=== PATIENT | female | born 1935 | race Caucasian/White ===

== ENCOUNTER 2016-08-14 23:50 | Inpatient (IN) | payer MEDICARE, OTHER ==
--- NOTE | ~2016-08-14 | EGD ---
EGD REPORT [facility] [address] [address] NAME: FATMATA VILLA : 34 STATUS : ADM IN PAT#: [id number] AGE: 81 ADM/REG DATE : 08/15/16 MR#: [id number] REPORT SERV DATE: 08/15/16 DICTATED BY: JIMMY ALANIS DATE: 08/15/16 REPORT STATUS : Draft [facility]ANSCRIBED [facility]: [facility] DATE: 08/15/16 Endoscopy Center Patient Name: Fatmata Villa Date of : 1935 Attending MD: JIMMY ALANIS MD Procedure Date No Time: 08/15/2016 Procedure: Upper EUS Indications: Common bile duct dilation (acquired) seen on CT scan, Suspected mass in pancreas on CT scan, Obstruction of bile duct on CT Medicines: General Anesthesia Complications: No immediate complications. Estimated blood loss: Minimal. Procedure: Pre-Anesthesia Assessment: - ASA Grade Assessment: III - A patient with severe systemic disease. After obtaining informed consent, the endoscope was passed under direct vision. Throughout the procedure, the patient's blood pressure, pulse, and oxygen saturations were monitored continuously. The Endoscope was introduced through the mouth, and advanced to the second part of duodenum. The Endoscope was introduced through the mouth, and advanced to the second part of duodenum. The upper EUS was accomplished without difficulty. The patient tolerated the procedure well. Findings: Endosonographic Finding : There was dilation in the common bile duct which measured up to 13 mm. A round mass was identified in the pancreatic head. The mass was hypoechoic. The mass measured 30 mm by 30 mm in maximal cross-sectional diameter. The endosonographic borders were well-defined. There was sonographic evidence suggesting invasion into the portal vein (manifested by invasion). An intact interface was seen between the mass and the celiac trunk, splenic artery and superior mesenteric artery suggesting a lack of invasion. Fine needle aspiration was performed. Color Doppler imaging was utilized prior to needle puncture to confirm a lack of significant vascular structures within the needle path. Five passes were made with the 22 gauge needle using a transduodenal approach. Some passes were made with a stylet. A database consultant was present and performed a preliminary cytologic examination. Preliminary cytology is suspicious for adenocarcinoma (final results are pending). Estimated blood loss was minimal. The pancreatic duct had a dilated endosonographic appearance in the entire pancreas. The pancreatic duct measured up to 7 mm in diameter. EGD REPORT [address] [place]. [address] NAME: FATMATA VILLA : 34 STATUS : ADM IN PAT#: [id number] AGE: 81 ADM/REG DATE : 08/15/16 MR#: [id number] REPORT SERV DATE: 08/15/16 DICTATED BY: JIMMY ALANIS DATE: 08/15/16 REPORT STATUS : Draft TRANSCRIBED BY: [facility] DATE: 08/15/16 No lymphadenopathy seen. Endosonographic imaging of the visualized portion of the liver showed no lesion and no mass. Impression: - There was dilation in the common bile duct which measured up to 13 mm. This was obstructed by a mass in the head of the pancreas. - A mass was identified in the pancreatic head. Tissue was obtained from this exam. The preliminary diagnosis is of adenocarcinoma. This was staged T3 N0 Mx by endosonographic criteria. Recommendation: - Perform an ERCP today. - Refer to an oncologist at the next available appointment. - Refer to a surgeon at the next available appointment. Procedure Code(s): --- Professional --- 42372, Esophagogastroduodenoscopy, flexible, transoral; with transendoscopic ultrasound-guided intramural or transmural fine needle aspiration/biopsy(s) (includes endoscopic ultrasound examination of the esophagus, stomach, and either the duodenum or a surgically altered stomach where the jejunum is examined distal to the anastomosis) Diagnosis Code(s): --- Professional --- K83.8, Other specified diseases of biliary tract K86.8, Other specified diseases of pancreas R93.3, Abnormal findings on diagnostic imaging of other parts of digestive tract K83.1, Obstruction of bile duct CPT copyright 2013 [employer]. All rights reserved. The codes documented in this report are preliminary and upon production line review may be revised to meet current compliance requirements. Jimmy Alanis MD JIMMY ALANIS MD 08/15/2016 11:43 AM This report has been signed electronically. Number of Addenda: 0 Note Initiated On: 08/15/2016 10:41 AM EGD REPORT [facility] [address] [address] NAME: FATMATA VILLA : 34 STATUS : ADM IN [facility]#: [id number] AGE: 81 ADM/REG DATE : 08/15/16 MR#: [id number] REPORT SERV DATE: 08/15/16 DICTATED BY: JIMMY ALANIS DATE: 08/15/16 REPORT STATUS : Draft TRANSCRIBED BY: [employer] DATE: 08/15/16 Scope Withdrawal Time 0 hours 0 minutes 0 seconds [address] [address]
--- NOTE | ~2016-08-14 | HP ---
History And Physical [place] [id number] [facility] [place]. [address] NAME: FATMATA VILLA : 34 STATUS : ADM IN [facility]#: [id number] AGE: 81 ADM/REG DATE : 08/15/16 MR#: [id number] REPORT SERV DATE: 08/15/16 DICTATED BY: SIRI BARRAGAN DATE: 08/15/16 REPORT STATUS : Draft TRANSCRIBED BY: JAYNE DATE: 08/15/16 DATE OF ADMISSION: 08/15/2016 CHIEF COMPLAINT: Severe itching. HISTORY OF PRESENT ILLNESS: This is an 81-year-old female with past medical history of hypertension and hypothyroidism, presented with a chief complaint of severe itching, which initiated in 06/2016. The patient's primary care physician retired. Therefore, the patient's daughter had the patient seen by her primary care physician, Dr. Ames, who evaluated the patient and noticed the patient was jaundiced and ordered a CT of abdomen and pelvis for which the patient had a CT of the abdomen and pelvis without contrast on 08/14/2016 at [facility] with CT findings suggestive of a pancreatic head malignancy with marked dilated bile ducts and moderate dilated pancreatic duct with mild dilated gallbladder. No gallstones and no evidence of metastases per the study and also some moderate extraperitoneal gas along the anterior bladder margin and the patient was referred to the emergency department. The patient has been on hydroxyzine and Benadryl for a little bit over a month for her severe itching by previous providers. She presented to [facility] ER, and the ER staff ordered a repeat CT of the abdomen and pelvis for medical records at [facility] and called the hospitalist to admit the patient to the hospital. REVIEW OF SYSTEMS: Positive night sweats. Positive approximate 10-pound weight loss. Decreased oral intake with a decreased appetite. No chest pain. No shortness of breath. No abdominal pain. No nausea or vomiting. No diarrhea. No constipation. PAST MEDICAL HISTORY: Hypertension, GERD, hypothyroidism, type 2 diabetes, fibromyalgia. PAST SURGICAL HISTORY: Left knee total replacement, hysterectomy, bladder sling, blepharoplasty. FAMILY HISTORY: Throat cancer, leukemia, lung cancer, vulvar cancer. SOCIAL HISTORY: Quit tobacco abuse 50 years ago. Smoked for approximately 15 years. No alcohol or illicit drugs with good physical capacity. ALLERGIES: ALLERGIES TO SULFA AND PHENERGAN. PHENERGAN CAUSES HALLUCINATIONS. HOME MEDICATIONS: 1. Atenolol 12.5 mg p.o. q.a.m. 2. Zyrtec 10 mg p.o. q.a.m. 3. Benadryl 25 mg p.o. q.8 hours. 4. Lexapro 10 mg p.o. q.a.m. 5. Estradiol vaginal cream p.r.n. 6. Atarax 25 mg p.o. q.8 hours. 7. Motrin 600 mg p.o. daily p.r.n. 8. Levothyroxine 88 mcg p.o. q.a.m. History And Physical [address] [address] NAME: FATMATA VILLA : 34 STATUS : ADM IN [facility]#: [id number] AGE: 81 ADM/REG DATE : 08/15/16 MR#: [id number] REPORT SERV DATE: 08/15/16 DICTATED BY: SIRI BARRAGAN DATE: 08/15/16 REPORT STATUS : Draft TRANSCRIBED BY: JAYNE DATE: 08/15/16 9. Antivert 25 mg p.o. daily p.r.n. 10.Metformin ER 500 mg p.o. at bedtime. 11.Prilosec 20 mg p.o. q.a.m. 12.Systane ophthalmic drops p.r.n. 13.Zantac 150 mg p.o. b.i.d. PHYSICAL EXAMINATION: VITAL SIGNS: Temp of 97.8, blood pressure 160/77 with a pulse of 76, respiration of 16, and saturating 98% on room air. GENERAL: The patient is alert oriented and x3, very pleasant, but in some mild distress secondary to severe itching. SKIN: Positive jaundice. HEENT: Positive scleral icterus. Extraocular muscles are intact. Moist to dry mucous membranes. CARDIOVASCULAR: S1, S2. Regular rate and rhythm. No murmurs, rubs, or gallops. No JVD. RESPIRATORY: Clear to auscultation bilaterally. No wheezes or crackles. No signs of tachypnea. ABDOMEN: Positive bowel sounds. Soft, nontender. No rebound. No fluid wave. No distention. EXTREMITIES: 2+ pulse bilaterally. No edema. NEURO: Cranial nerves II through XII grossly intact. Moves all four extremities. No neuro focal deficits. LABORATORY DATA: Sodium 136, potassium 3.6, chloride 100, bicarb of 25, BUN of 12, creatinine is 0.8 with a glucose of 173, albumin of 2.9, T-bili of 10.5, alkaline phosphatase 252, ALT of 154, AST of 127, lipase of 723. White cell count of 8.1 with a hemoglobin of 11.5, platelet count 269. UA with a specific gravity of 1.16, negative protein, moderate amount of bilirubin, small amount of blood, trace of leukocyte esterase, positive nitrites, 5 white blood cells. ASSESSMENT AND PLAN: 1. Pancreatic mass. 2. Hyperbilirubinemia with jaundice. 3. Elevated liver function tests. 4. History of type 2 diabetes. 5. History of hypertension. The patient will be admitted to Dr. Adriano Young, and also, we will consult GI physician, Dr. Duong who is the patient's primary Gastrointestinal physician for further workup and evaluation for biopsy for diagnoses. Also, we will provide care for itching. We will continue with sliding scale insulin for now and blood pressure management. [facility] Siri Nunn History And Physical [address] [address] NAME: FATMATA VILLA PROSPER : 34 STATUS : ADM IN [facility]#: [id number] AGE: 81 ADM/REG DATE : 08/15/16 MR#: [id number] REPORT SERV DATE: 08/15/16 DICTATED BY: SIRI BARRAGAN DATE: 08/15/16 REPORT STATUS : Draft TRANSCRIBED BY: JAYNE DATE: 08/15/16 Veronika Barragan / [id number] CC: MD Mark Hodges M.D.
--- NOTE | ~2016-08-14 | EGD ---
EGD REPORT [place] [address] [address] NAME: FATMATA VILLA : 34 STATUS : ADM IN PAT#: [id number] AGE: 81 ADM/REG DATE : 08/15/16 MR#: [id number] REPORT SERV DATE: 08/15/16 DICTATED BY: JIMMY ALANIS DATE: 08/15/16 REPORT STATUS : Draft TRANSCRIBED BY: [facility] DATE: 08/15/16 Endoscopy Center Patient Name: Fatmata Villa Date of : 1935 Attending MD: JIMMY ALANIS MD Procedure Date No Time: 08/15/2016 Procedure: ERCP Indications: Malignant tumor of the head of pancreas Medicines: General Anesthesia Complications: No immediate complications. Estimated blood loss: Minimal. Procedure: Pre-Anesthesia Assessment: - ASA Grade Assessment: III - A patient with severe systemic disease. After obtaining informed consent, the scope was passed under direct vision. Throughout the procedure, the patient's blood pressure, pulse, and oxygen saturations were monitored continuously. The Duodenoscope was introduced through the mouth, and advanced to the duodenum and used to inject contrast into the bile duct. The ERCP was accomplished without difficulty. The patient tolerated the procedure well. Findings: The teacher cclc film was normal. The esophagus was successfully intubated under direct vision. The scope was advanced to a normal major papilla in the descending duodenum without detailed examination of the pharynx, larynx and associated structures, and upper GI tract. The upper GI tract was grossly normal. After engaging the papilla, a short 0.035 inch Soft Jagwire was passed into the biliary tree. The short-nosed traction sphincterotome was passed over the guidewire and the bile duct was then deeply cannulated. Contrast was injected. I personally interpreted the bile duct images. Image quality was adequate. The lower third of the main bile duct contained a single localized stenosis 30 mm in length. The entire biliary tree was diffusely dilated, with a mass causing an obstruction. The largest diameter was 13 mm. One 10 mm by 4 cm bare metal stent was placed into the common bile duct. Bile flowed through the stent. The stent was in good position. The endoscope was withdrawn from the patient. Impression: - A localized biliary stricture was found. The stricture was malignant appearing. - The entire biliary tree was dilated, with a mass causing an obstruction. - Successful placement of a 10 x 40 mm uncovered SEMS EGD REPORT [address] [address] NAME: FATMATA VILLA : 34 STATUS : ADM IN [facility]#: [id number] AGE: 81 ADM/REG DATE : 08/15/16 MR#: [id number] REPORT SERV DATE: 08/15/16 DICTATED BY: JIMMY ALANIS DATE: 08/15/16 REPORT STATUS : Draft TRANSCRIBED BY: [employer] DATE: 08/15/16 for relief of biliary obstruction Recommendation: - Return patient to hospital [facility] for ongoing care. Procedure Code(s): --- Professional --- 18009, Endoscopic retrograde cholangiopancreatography (ERCP); with placement of endoscopic stent into biliary or pancreatic duct, including pre- and post-dilation and guide wire passage, when performed, including sphincterotomy, when performed, each stent Diagnosis Code(s): --- Professional --- K83.1, Obstruction of bile duct C25.0, Malignant neoplasm of head of pancreas CPT copyright 2013 [employer]. All rights reserved. The codes documented in this report are preliminary and upon credit underwriter review may be revised to meet current compliance requirements. Jimmy Alanis MD JIMMY ALANIS MD 08/15/2016 12:15 PM This report has been signed electronically. Number of Addenda: 0 Note Initiated On: 08/15/2016 10:46 AM Scope Withdrawal Time 0 hours 0 minutes 0 seconds [address] [address]
--- NOTE | ~2016-08-14 | CN ---
Consultation Report [facility] [address] [place]. [address] NAME: FATMATA VILLA : 34 STATUS : ADM IN PAT#: [id number] AGE: 81 ADM/REG DATE : 08/15/16 MR#: [id number] REPORT SERV DATE: 08/16/16 DICTATED BY: GRADY PETERSEN III DATE: 08/15/16 REPORT STATUS : Draft TRANSCRIBED BY: [employer] DATE: 08/15/16 CONSULTATION DATE OF CONSULTATION: 08/15/2016 REASON FOR CONSULTATION: Pancreatic cancer. HISTORY OF PRESENT ILLNESS: Ms. Villa is an 81-year-old female, who has noted roughly two months of progressive fatigue and mild weight loss of roughly 10 pounds. Over the past one to two days, she has developed some severe itching and noticed development of jaundice. She present to her primary care doctor who sent her to the emergency department where a CT scan showed a pancreatic head mass. She underwent an EUS with biopsy and ERCP with stent placement, which returned showing a preliminary diagnosis of pancreatic adenocarcinoma. The EUS revealed a primary tumor measured roughly 3 cm. There was some sonographic evidence of invasion into the portal vein, but an intact interface noted between the mass of the celiac trunk, splenic artery, and superior mesenteric artery. Presently Ms. Villa is very comfortable. She notes continued itching, but otherwise has very minimal abdominal pain and excellent appetite. PAST MEDICAL HISTORY: Significant for hypertension, hypothyroidism, type 2 diabetes, GERD, and fibromyalgia. SOCIAL HISTORY: Significant for a prior smoking history, but she stopped many years ago. ALLERGIES: INCLUDE SULFA DRUGS AND PHENERGAN. HOME MEDICATION: List reviewed and per the home med list in the chart. FAMILY HISTORY: Negative for any GI malignancies, but is positive for leukemia, lung cancer, throat cancer, and SHELL PRESS OPERATOR cancer. REVIEW OF SYSTEMS: A comprehensive review of systems was performed and is negative unless noted in the HPI. PHYSICAL EXAMINATION: VITAL SIGNS: Blood pressure is 145/73, temperature is 98.5, pulse is 68, respirations 15. GENERAL: Well-developed, well-nourished, elderly female, and appearing much younger than her stated age. EYES: There are mild icteric sclerae. NECK: Supple with no masses or thyroid enlargement. No JVD. CARDIOVASCULAR: Regular rate and rhythm with no audible murmurs. There is no peripheral edema. LUNGS: Clear to auscultation bilaterally with normal respiratory effort. ABDOMEN: Soft, nondistended, nontender with no hepatosplenomegaly. SKIN: Warm and dry with good skin turgor. There is jaundice noted. Consultation Report [place] [address] [place]. [address] NAME: FATMATA VILLA : 34 STATUS : ADM IN PAT#: [id number] AGE: 81 ADM/REG DATE : 08/15/16 MR#: [id number] REPORT SERV DATE: 08/16/16 DICTATED BY: GRADY PETERSEN III DATE: 08/15/16 REPORT STATUS : Draft TRANSCRIBED BY: JAYNE DATE: 08/15/16 PSYCH: She is alert, oriented, and comprehends our conversation with normal judgment and affect. LABORATORY DATA: Her labs from today were reviewed, and significant for elevated liver function tests. Her CBC was reviewed showing mild anemia. Her CT scan was personally reviewed, it was performed without contrast and without any evidence of metastatic disease. ASSESSMENT AND PLAN: 1. Likely pancreatic adenocarcinoma. She does have an excellent performance status. We will await final pathology reports. She is said to be seen by a SHELL PRESS OPERATOR oncologic surgeon. We will obtain a CT scan with contrast of her liver to complete staging and rule out occult metastasis. I will follow Ms. Villa while she is an inpatient and arrange outpatient followup in our [facility] upon discharge. [facility]/JAYNE Grady Petersen III, M.D. / [id number] CC: MD Mark Hodges M.D.
--- NOTE | ~2016-08-14 | CN ---
Consultation Report [place] [id number] [facility] [place]. [address] NAME: FATMATA VILLA JULY CHENG : 34 STATUS : ADM IN [facility]#: [id number] AGE: 81 ADM/REG DATE : 08/15/16 MR#: [id number] REPORT SERV DATE: 08/15/16 DICTATED BY: JIMMY ALANIS DATE: 08/15/16 REPORT STATUS : Draft TRANSCRIBED BY: [employer] DATE: 08/15/16 INPATIENT CONSULT NOTE DATE OF CONSULTATION: 08/15/2016 REASON FOR CONSULTATION: Obstructive jaundice with pancreatic head mass. HISTORY OF PRESENT ILLNESS: Mrs. Villa is a very pleasant 81-year-old female with no significant past medical history, who was referred to the emergency department yesterday after undergoing CT scanning of her abdomen for findings of new jaundice. According to the patient, she has been having problems with severe uncontrollable itching for the past two months. The patient had not seen her primary care physician as he had recently retired, however, she was seen by another primary care physician who urgently referred her for CT scan of the abdomen after finding that she had a markedly elevated bilirubin level. CT of the abdomen performed in [place], [place] demonstrated a 3.8 cm mass in the head of the pancreas causing marked obstruction of the common bile duct. She was later referred to the emergency department for further management and care. The patient states that she has lost approximately 10 pounds over the past two months. No fevers or chills. No nausea or vomiting. No significant abdominal pain. No family history of pancreatic malignancy. REVIEW OF SYSTEMS: All systems were reviewed and were negative aside from what was mentioned in the history of present illness. PAST MEDICAL HISTORY: Includes: 1. Hypertension. 2. Hypothyroidism. 3. GERD. 4. Type 2 diabetes. 5. Fibromyalgia. FAMILY HISTORY: No family history of GI related malignancies. SOCIAL HISTORY: The patient was a prior smoker, but quit 50 years ago. No alcohol or illicit substance abuse. ALLERGIES: THE PATIENT HAS ALLERGIES TO SULFA AND PHENERGAN. HOME MEDICATIONS: 1. Atenolol. 2. Zyrtec. 3. Benadryl. 4. Lexapro. 5. Estradiol cream. Consultation Report [place] [address] [facility] [place]. [address] NAME: VILLA,FATMATA CHENG : 34 STATUS : ADM IN PAT#: [id number] AGE: 81 ADM/REG DATE : 08/15/16 MR#: [id number] REPORT SERV DATE: 08/15/16 DICTATED BY: JIMMY ALANIS DATE: 08/15/16 REPORT STATUS : Draft TRANSCRIBED BY: JAYNE DATE: 08/15/16 6. Atarax. 7. Motrin. 8. Levothyroxine. 9. Antivert. 10.Metformin. 11.Prilosec. 12.Systane ophthalmic drops. 13.Zantac. PHYSICAL EXAMINATION: VITAL SIGNS: Most recent vital signs include a temperature of 98.2, pulse rate of 82, blood pressure 156/90, saturating 98% on room air. GENERAL INSPECTION: Reveals an elderly female, lying in bed, in no apparent distress. HEENT: Head is normocephalic, atraumatic with normal inspection of the oral mucosa and posterior pharynx. Sclerae are icteric, but pupils are equal and round. NECK: Supple without lymphadenopathy. HEART: Rate is regular with normal S1, S2. LUNGS: Sounds clear to auscultation bilaterally. ABDOMEN: Soft, nontender, nondistended with normoactive bowel sounds. The patient has no masses that were palpable. EXTREMITIES: No cyanosis, clubbing, or edema. No jaundice or rash. No gross motor deficits. NEURO: She was alert and oriented. Mood and affect are appropriate. Judgment appeared to be intact. LABORATORY DATA: Most recent laboratory results include CBC that demonstrates a white count of 9.6, hemoglobin of 11.2, and a platelet count of 241,000. INR was 1.0. Comprehensive metabolic panel demonstrated normal electrolytes with normal BUN and creatinine. Total bilirubin was elevated at 10.2. Alkaline phosphatase 238, ALT 136, and AST of 108. CT of the abdomen and pelvis performed at an outside facility. The report was reviewed and suggested that there is a 3.8 cm mass in the head of the pancreas causing obstruction of the common bile duct which is dilated to 2 cm. ASSESSMENT AND PLAN: Mrs. Villa is a very pleasant 81-year-old female with no significant past medical history, who presents with jaundice and severe pruritus and she was found to have an obstructing pancreatic head mass causing biliary obstruction. I would recommend proceeding with endoscopic ultrasound and fine-needle aspiration biopsy. After that, once the diagnosis has been obtained, we would recommend placement of a metal stent for drainage and relief of her jaundice and pruritus. We would also recommend checking a CA 19-9. Once the tissue diagnosis has been obtained, we would recommend pursuing oncology consult if it is found to be positive for malignancy. I would also recommend obtaining a surgical consult for consideration of possible resection if no metastatic disease is present and the mass is felt to be amenable to surgery. Consultation Report [address] [place]. [address] NAME: FATMATA VILLA : 34 STATUS : ADM IN PAT#: [id number] AGE: 81 ADM/REG DATE : 08/15/16 MR#: [id number] REPORT SERV DATE: 08/15/16 DICTATED BY: JIMMY ALANIS DATE: 08/15/16 REPORT STATUS : Draft TRANSCRIBED BY: JAYNE DATE: 08/15/16 Thank you very much for this interesting consult and allowing me to participate in Mrs. Villa' care. Please call with questions. [facility]/JAYNE Jimmy Alanis MD / [id number] CC: MD Mark Hodges M.D.
--- NOTE | ~2016-08-14 | DS ---
Discharge Summary [facility] [address] [facility] [place]. [address] NAME: FATMATA VILLA : 33 STATUS : DIS IN PAT#: [id number] AGE: 81 ADM/REG DATE : 08/15/16 MR#: [id number] REPORT SERV DATE: 08/17/16 DICTATED BY: SELINA BEJARANO DATE: 08/16/16 REPORT STATUS : Draft TRANSCRIBED BY: MODYves DATE: 08/16/16 ADMISSION DATE: 08/15/2016 DISCHARGE DATE: 08/16/2016 DISCHARGE DIAGNOSES: 1. Pancreatic cancer, preliminary diagnosis, status post EUS/ERCP. Dr. Thompson on 08/15/2016. 2. Hyperbilirubinemia with jaundice, improving. 3. Elevated liver function tests, improving. 4. Diabetes mellitus type 2, stable. 5. Hypertension, stable. IMAGING AND PROCEDURES: CT abdomen and pelvis on 08/15/2016. Impression: Areas of irregular linear atelectasis and/or fibrosis primarily in the lower lungs. Otherwise lungs are clear. Hiatal hernia. Enlargement of the pancreatic head with edema/inflammation within the adjacent fat. Possible underlying masses not adequately evaluated due to lack of IV contrast. The stent is present in the common duct. There is a minimal intrahepatic pneumobilia with significant intrahepatic duct dilation. The gallbladder is distended with prominence of gallbladder wall thickness. Evidence of calcified gallbladder stones or pericholecystic inflammation. ERCP and EUS on 08/15/2016. Findings, localized biliary stricture. The stricture was found. The stricture was malignant appearing. The entire biliary tree was dilated with a mass causing an obstruction. Successful placement of a 10 x 40 uncovered SCMS. CONSULTATION: 1. GI, Dr. Thompson. 2. Oncology, Dr. Ren. COURSE OF HOSPITAL STAY: Please refer to history and physical dictated by Dr. Stewart on 08/15/2016 for complete admission details as well as consultation notes. This patient is an 81-year-old female, who presented in [facility] with complaints of severe itching. She does present with a history of hypertension and hypothyroidism. The patient stated that itching began in 06/2016 and then followed by primary care. CT of the abdomen and pelvis by primary care noted possible pancreatic head malignancy with marked dilation of bile duct and moderate dilated pancreatic duct with mild dilated gallbladder. The patient was advised to be evaluated in the emergency room. Additional imaging was obtained as noted above. 1. Pancreatic cancer. New diagnosis status post EUS/ERCP, Dr. Thompson on 08/15/2016. The patient was admitted to the hospital for further testing and evaluation. The patient did undergo above procedure. Consultation by Oncology and Surgery. The patient was evaluated, will follow up outpatient for further discussion of treatment plan. Pathology is pending. 2. Hyperbilirubinemia with jaundice. The patient was noted with elevated total bilirubin upon admission of 10.5, IV fluids provided as well as IV hydration. The patient's Discharge Summary [place] [id number] [facility]. [address] NAME: FATMATA VILLA : 33 STATUS : DIS IN PAT#: [id number] AGE: 81 ADM/REG DATE : 08/15/16 MR#: [id number] REPORT SERV DATE: 08/17/16 DICTATED BY: SELINA BEJARANO DATE: 08/16/16 REPORT STATUS : Draft TRANSCRIBED BY: JAYNE DATE: 08/16/16 bilirubin prior to discharge, total bilirubin is down to 7.0. The patient will continue followed outpatient and monitor. 3. Diabetes mellitus type 2. Patient will resume home medications. Blood sugars have remained stable. 4. Hypertension. Patient's blood pressures remained stable. We will continue Norvasc 5 mg outpatient. 5. Pruritus. The patient has had complaints of pruritus for approximately 8 weeks. This is improving following decrease in bilirubin level. She will continue Benadryl and Atarax p.r.n. as needed for itching. DISCHARGE MEDICATIONS: 1. Norvasc 5 mg one p.o. twice daily. 2. Atenolol 25 mg 12.5 p.o. every morning. 3. Benadryl 25 mg p.o. every eight hours. 4. Lexapro 10 mg tab p.o. every morning. 5. Zantac 150 mg one p.o. twice daily. 6. Levothyroxine 88 mcg p.o. every morning. 7. Zyrtec 10 mg one p.o. every morning. 8. Prilosec 20 mg one p.o. every morning. 9. Atarax 25 mg one p.o. every eight hours. 10.Metformin 500 mg p.o. at bedtime. 11.Motrin 600 mg p.r.n. daily for headache. 12.Estradiol one application daily p.r.n. 13.Antivert 25 mg one p.o. daily p.r.n. for vertigo. This discharge took less than 30 minutes. /JAYNE Selina Bejarano NP / [id number] CC: MD Mark Hodges M.D.
[2016-08-14 22:34] LABS: BASOPHILS 0.2 %; BASOPHILS ABSOLUTE 0.02 10/3/uL (0.0-0.16); EOSINOPHILS 0.1 %; EOSINOPHILS ABSOLUTE 0.01 10/3/uL (0.0-0.53); ER CBC TAT 0 Hrs 12 Mins; HEMATOCRIT 33.8 % (36.0-48.0); HEMOGLOBIN 11.5 g/dL (12.0-16.0); IMMATURE GRANULOCYTES 0.7 %; IMMATURE GRANULOCYTES ABSOLUTE 0.06 10/3/uL (0.0-0.11); LYMPHOCYTES ABSOLUTE 2.44 10/3/uL (0.67-4.30); MANUAL DIFF NO %; MEAN CORPUSCULAR HEMOGLOB 28.3 pg (26.0-34.0); MONOCYTES ABSOLUTE 0.73 10/3/uL (0.21-1.20); NEUTROPHILS ABSOLUTE 4.87 10/3/uL (2.02-8.40); PLATELET COUNT 269 10/3/uL (150-400); RBC DISTRIBUTION WIDTH 18.2 % (12.0-16.0); RED CELL COUNT 4.07 10/6/uL (4.0-5.6); WHITE BLOOD CELLS 8.1 10/3/uL (4.5-10.5)
[2016-08-14 22:40] LABS: ASCORBIC ACID (UR NOT ORDER) NEG (NEG); BILIRUBIN, URINE MODERATE (NEG); ER URINALYSIS TAT 0 Hrs 18 Mins; KETONE, URINE NEGATIVE (NEG); LEUKOCYTE ESTERASE(NOT OR TRACE (NEG); NITRITE (URINE) POS (NEG); WBC (NOT ORDERED) (RFLEX) 5 (0-5)
[2016-08-14 22:58] LABS: A/G RATIO 0.7 (0.7-1.9); ALBUMIN 2.9 G/DL (3.5-5.0); BUN (BLOOD UREA NITROGEN) 12 MG/DL (6-23); CALCIUM, SERUM 8.4 MG/DL (8.5-10.4); CHLORIDE, SERUM 100 MMOL/L (96-112); CO2 (CARBON DIOXIDE) 25 MMOL/L (24-34); CREATININE 0.89 MG/DL (0.55-1.02); DIRECT BILIRUBIN 8.7 MG/DL (0.0-0.4); GFR AFRICAN AMERICAN 70 ML/MIN (>=60); GFR NON AFRICAN AMERICAN 60 ML/MIN (>=60); GLOBULIN 4.1 G/DL (2.5-4.1); GLUCOSE, SERUM 173 MG/DL (60-99); POTASSIUM, SERUM 3.6 MMOL/L (3.5-5.3); SGOT(AST) 127 U/L (5-40); SGPT(ALT) 154 U/L (5-65); SODIUM, SERUM 136 MMOL/L (135-148)
[2016-08-14 22:59] LABS: ALKALINE PHOSPHATASE 252 U/L (45-117); INDIRECT BILIRUBIN(NOT ORDER) 1.8 MG/DL (0.1-0.9); TOTAL BILIRUBIN 10.5 MG/DL (0-1.2)
[~2016-08-14 23:50] MED LIST: ACTONEL150 MG PO; ALEVE220 MG PO; AT25 PO; ATEN25 PO; BEN25 PO; CALTRA600D PO; CLARIT10 PO; COLCH6 PO; ESTRACE VAGIN42.5 GM V; FORTAMET500 MG PO; GLUCPH PO; IBU600 PO; LEVOTHYROXIN88 MCG PO; LEXAPRO10 PO; MCZ25 PO; MOBIC15 MG PO; MOTRIN IB200 MG PO; PREV30 PO; PRILO PO; SYN1 PO; SYN88 PO; SYSTANE OPH; T PO; VITAMIN D1000 UNI1 PO; ZANTAC 150 PO; ZYRTEC ALLGY10 MG PO
[2016-08-15 06:57] LABS: BASOPHILS 0.2 %; BASOPHILS ABSOLUTE 0.02 10/3/uL (0.0-0.16); EOSINOPHILS 0.1 %; EOSINOPHILS ABSOLUTE 0.01 10/3/uL (0.0-0.53); HEMATOCRIT 31.8 % (36.0-48.0); HEMOGLOBIN 11.2 g/dL (12.0-16.0); IMMATURE GRANULOCYTES 0.9 %; IMMATURE GRANULOCYTES ABSOLUTE 0.09 10/3/uL (0.0-0.11); LYMPHOCYTES 24.3 %; LYMPHOCYTES ABSOLUTE 2.32 10/3/uL (0.67-4.30); MEAN CORPUS HGB CONC 35.2 g/dL (32.0-36.0); MEAN CORPUSCULAR HEMOGLOB 28.6 pg (26.0-34.0); MEAN CORPUSCULAR VOLUME 81.3 fL (80-100); MEAN PLATELET VOLUME 10.1 fL (9.2-13.0); MONOCYTES ABSOLUTE 1.05 10/3/uL (0.21-1.20); NEUTROPHILS 63.5 %; NEUTROPHILS ABSOLUTE 6.07 10/3/uL (2.02-8.40); PLATELET COUNT 241 10/3/uL (150-400); RBC DISTRIBUTION WIDTH 18.5 % (12.0-16.0); RED CELL COUNT 3.91 10/6/uL (4.0-5.6); WHITE BLOOD CELLS 9.6 10/3/uL (4.5-10.5)
[2016-08-15 07:01] LABS: MANUAL DIFF NO %
[2016-08-15 07:18] LABS: PROTIME (NOT ORD) 13.2 SEC (12.0-14.5)
[2016-08-15 07:22] LABS: A/G RATIO 0.7 (0.7-1.9); ALBUMIN 2.7 G/DL (3.5-5.0); ALKALINE PHOSPHATASE 238 U/L (45-117); BUN (BLOOD UREA NITROGEN) 9 MG/DL (6-23); CALCIUM, SERUM 8.4 MG/DL (8.5-10.4); CHLORIDE, SERUM 101 MMOL/L (96-112); CO2 (CARBON DIOXIDE) 21 MMOL/L (24-34); CREATININE 0.73 MG/DL (0.55-1.02); GFR AFRICAN AMERICAN 89 ML/MIN (>=60); GFR NON AFRICAN AMERICAN 77 ML/MIN (>=60); GLOBULIN 3.8 G/DL (2.5-4.1); GLUCOSE, SERUM 154 MG/DL (60-99); POTASSIUM, SERUM 3.6 MMOL/L (3.5-5.3); SGOT(AST) 108 U/L (5-40); SGPT(ALT) 136 U/L (5-65); SODIUM, SERUM 136 MMOL/L (135-148); TOTAL BILIRUBIN 10.2 MG/DL (0-1.2); TOTAL PROTEIN 6.5 G/DL (6.0-8.5)
[2016-08-15 10:10] LABS: CA-19-9 5916.4 U/ML (< 37.0)
[2016-08-16 06:57] LABS: BASOPHILS 0.1 %; BASOPHILS ABSOLUTE 0.01 10/3/uL (0.0-0.16); EOSINOPHILS 0 %; HEMATOCRIT 30.6 % (36.0-48.0); HEMOGLOBIN 10.4 g/dL (12.0-16.0); IMMATURE GRANULOCYTES 0.7 %; IMMATURE GRANULOCYTES ABSOLUTE 0.06 10/3/uL (0.0-0.11); LYMPHOCYTES 19.7 %; MEAN CORPUSCULAR HEMOGLOB 28.4 pg (26.0-34.0); MEAN CORPUSCULAR VOLUME 83.6 fL (80-100); MEAN PLATELET VOLUME 10.3 fL (9.2-13.0); MONOCYTES 9.9 %; MONOCYTES ABSOLUTE 0.85 10/3/uL (0.21-1.20); NEUTROPHILS 69.6 %; NEUTROPHILS ABSOLUTE 5.99 10/3/uL (2.02-8.40); PLATELET COUNT 249 10/3/uL (150-400); RBC DISTRIBUTION WIDTH 18.2 % (12.0-16.0); RED CELL COUNT 3.66 10/6/uL (4.0-5.6); WHITE BLOOD CELLS 8.6 10/3/uL (4.5-10.5)
[2016-08-16 06:58] LABS: MANUAL DIFF NO %
[2016-08-16 07:06] LABS: A/G RATIO 0.6 (0.7-1.9); ALBUMIN 2.3 G/DL (3.5-5.0); BUN (BLOOD UREA NITROGEN) 9 MG/DL (6-23); CALCIUM, SERUM 8.2 MG/DL (8.5-10.4); CHLORIDE, SERUM 100 MMOL/L (96-112); CO2 (CARBON DIOXIDE) 25 MMOL/L (24-34); CREATININE 0.69 MG/DL (0.55-1.02); GFR AFRICAN AMERICAN 94 ML/MIN (>=60); GFR NON AFRICAN AMERICAN 81 ML/MIN (>=60); GLOBULIN 3.7 G/DL (2.5-4.1); GLUCOSE, SERUM 156 MG/DL (60-99); POTASSIUM, SERUM 3.3 MMOL/L (3.5-5.3); SGOT(AST) 65 U/L (5-40); SGPT(ALT) 104 U/L (5-65); SODIUM, SERUM 135 MMOL/L (135-148)
[2016-08-16 07:07] LABS: ALKALINE PHOSPHATASE 207 U/L (45-117)
[2016-08-16] MEDS ORDERED: NORV5 PO (10:41)
[2016-08-16] MEDS ORDERED: MULTIPLE VIT PO (10:42)
[2016-08-16] MEDS ORDERED: ZOFRAN8 PO ×2 (10:53→10:54)
[2016-08-16] MEDS ORDERED: ZOFRAN ODT4 MG PO (12:16)
== END 2016-08-16 13:09 | disposition home or self-care (01) | DRG 435 ==
LOC: ER 23:50 → 4EA 08-15 01:41
PROVIDERS: Emergency Medicine; Internal Medicine; Internal Medicine Gastroenterology; Nurse Practitioner Adult Health
PROC: 0F798DZ Dilation of Common Bile Duct with Intraluminal Device, Via Natural or Artificial Opening Endoscopic (ICD-10-PCS; principal; 2016-08-15 11:03)
PROC: 0FBG3ZX Excision of Pancreas, Percutaneous Approach, Diagnostic (ICD-10-PCS; 2016-08-15 11:03)
DX: C25.9 Malignant neoplasm of pancreas, unspecified (principal); K83.1 Obstruction of bile duct; E11.9 Type 2 diabetes mellitus without complications; I10 Essential (primary) hypertension
CPT/HCPCS: 71250; 74170; 74176; 74330; 80053; 81001; 82248; 82962; 83690; 85025; 85610; 86301; 88172; 88173; 88305; 93005; 99285; A9270-GY; C1876; J2405; J2710; J3010; Q9967

== ENCOUNTER 2016-08-29 11:30 | Day surgery (SDC) | payer MEDICARE, OTHER ==
--- NOTE | ~2016-08-29 | OP ---
Record Of Operation [place] [id number] [facility] [place]. [address] NAME: FATMATA VILLA : 33 STATUS : [facility]#: [id number] AGE: 81 ADM/REG DATE : 08/29/16 MR#: [id number] REPORT SERV DATE: 09/03/16 DICTATED BY: LEANNA WYNNE DATE: 08/29/16 REPORT STATUS : Draft TRANSCRIBED BY: MODL DATE: 08/29/16 DATE OF PROCEDURE: 08/29/2016 SURGEON: Leanna Wynne M.D. RESIDENT: Georgia Mason M.D. PREOPERATIVE DIAGNOSES: 1. Pancreatic cancer. 2. Phlebosclerosis with need for cytotoxic chemotherapy. POSTOPERATIVE DIAGNOSES: 1. Pancreatic cancer. 2. Phlebosclerosis with need for cytotoxic chemotherapy.. PROCEDURE: Right internal jugular vein Port-A-Cath placement under fluoroscopic guidance and an ultrasound-guided access of the right internal jugular vein. ANESTHESIA: Total IV anesthesia. ESTIMATED BLOOD LOSS: Less than 10 mL. IV FLUIDS: 500 mL. SPECIMEN: None. COMPLICATIONS: None. IMPLANT: PowerPort slim implantable port. INDICATIONS: Ms. Villa is an 81-year-old female with locally advanced pancreatic adenocarcinoma for which she will require chemotherapy. Port-A-Cath placement was offered. Preoperatively, the benefits, alternatives, and risks, including bleeding, infection, risk of hemothorax or pneumothorax and need for chest tube and possible port infection were all described in detail to the patient. After voicing understanding of these risks, she desired to proceed with surgery. PROCEDURE IN DETAIL: The patient was identified preoperatively as Fatmata Villa. It was determined that the appropriately signed documents including history and physical and operative permit were secured on the chart. She was taken to the operating room, placed supine on the operating table where sedation was administered by the Anesthesia Service in titrated doses. The anesthesia service monitored her throughout the procedure. The right neck and anterior chest were prepped and draped in the usual sterile fashion, and an appropriate time-out procedure was completed wherein the patient, procedure, site, positioning, allergies, equipment, and administration of antibiotics were all verified prior to beginning. The right internal jugular vein was accessed with a needle under ultrasound Record Of Operation [facility] [address] [facility] [place]. [address] NAME: FATMATA VILLA : 33 STATUS : [facility] PAT#: [id number] AGE: 81 ADM/REG DATE : 08/29/16 MR#: [id number] REPORT SERV DATE: 09/03/16 DICTATED BY: LEANNA WYNNE DATE: 08/29/16 REPORT STATUS : Draft TRANSCRIBED BY: JAYNE DATE: 08/29/16 guidance after anesthetizing the skin and subcutaneous tissues along the planned pass and location of the port. Venous blood was returned and a wire threaded easily. Picture of the patent vein was printed and secured. The port placement was marked in the right anterior chest two fingerbreadths below the clavicle. An incision was made with a knife. This was carried down to the pectoralis fascia and an appropriately sized pocket was created with a combination of electrocautery and blunt dissection. The port was then secured to the anterior pectoralis fascia with Ethibond suture. A tunneler was used to tunnel the catheter from the neck to the chest and under fluoroscopic guidance, the wire position was checked and the dilator and sheath were passed over the wire under fluoroscopic guidance. The wire and dilator were removed and the catheter was then threaded through the peel-away sheath, which was removed and the catheter placement was verified to rest of the cavoatrial junction under fluoroscopic guidance. Catheter was then cut to length after applying the clamping appendage and then attached to the port following full charge bookkeeper's directions exactly. Stay sutures were tied and port was flushed and aspirated well and locked with heparinized saline and then placed into the pocket. The subcutaneous tissues were closed with Vicryl in a deep dermal fashion, and the skin was reapproximated with Monocryl in a subcuticular fashion. Mastisol and Steri-Strips were applied, and a sterile dressing was applied. This ended the surgical procedure. Sedation was stopped. The patient was allowed to awaken and transferred to the postanesthesia care unit in good condition after having tolerated the procedure well. All counts of needles, sponges, and instruments were correct at the end the case. Dr. Wynne was present and scrubbed for the entirety of the procedure. No intraoperative complications were noted. DICTATED BY: MD GREGORIO Flores/JAYNE Leanna Wynne MD / [id number] CC: MD Mark Torres M.D.
[~2016-08-29 11:30] MED LIST changes: +MULTIPLE VIT PO; +NORV5 PO; +ZOFRAN ODT4 MG PO; +ZOFRAN8 PO
== END 2016-08-29 15:39 | disposition home or self-care (01) ==
LOC: SDC 11:30
PROVIDERS: Transplant Surgery
PROC: 05HM33Z Insertion of Infusion Device into Right Internal Jugular Vein, Percutaneous Approach (ICD-10-PCS; 2016-08-29)
PROC: B513YZA Fluoroscopy of Right Jugular Veins using Other Contrast, Guidance (ICD-10-PCS; 2016-08-29)
PROC: 05HM33Z Insertion of Infusion Device into Right Internal Jugular Vein, Percutaneous Approach (ICD-10-PCS; 2016-08-29)
PROC: B543ZZA Ultrasonography of Right Jugular Veins, Guidance (ICD-10-PCS; 2016-08-29)
PROC: 0JH60XZ Insertion of Tunneled Vascular Access Device into Chest Subcutaneous Tissue and Fascia, Open Approach (ICD-10-PCS; principal; 2016-08-29 12:45)
DX: C25.9 Malignant neoplasm of pancreas, unspecified (principal); I87.8 Other specified disorders of veins; E11.9 Type 2 diabetes mellitus without complications; I10 Essential (primary) hypertension; K21.9 Gastro-esophageal reflux disease without esophagitis; E03.9 Hypothyroidism, unspecified; M79.7 Fibromyalgia; Z90.710 Acquired absence of both cervix and uterus; Z90.89 Acquired absence of other organs; Z96.652 Presence of left artificial knee joint; Z98.890 Other specified postprocedural states; Z88.2 Allergy status to sulfonamides; Z88.8 Allergy status to other drugs, medicaments and biological substances; Z79.899 Other long term (current) drug therapy; Z79.1 Long term (current) use of non-steroidal anti-inflammatories (NSAID); Z79.2 Long term (current) use of antibiotics; Z98.41 Cataract extraction status, right eye; Z98.42 Cataract extraction status, left eye
CPT/HCPCS: 71010; 82962; C1788; J0690; J2405; J3010

== ENCOUNTER 2016-10-14 12:52 | Emergency (ER) | payer MEDICARE, OTHER ==
[2016-10-14 13:55] LABS: BASOPHILS 0.2 %; BASOPHILS ABSOLUTE 0.01 10/3/uL (0.0-0.16); EOSINOPHILS 0.2 %; EOSINOPHILS ABSOLUTE 0.01 10/3/uL (0.0-0.53); ER CBC TAT 0 Hrs 07 Mins; HEMATOCRIT 34.1 % (36.0-48.0); HEMOGLOBIN 11.5 g/dL (12.0-16.0); IMMATURE GRANULOCYTES 0.3 %; IMMATURE GRANULOCYTES ABSOLUTE 0.02 10/3/uL (0.0-0.11); LYMPHOCYTES ABSOLUTE 1.94 10/3/uL (0.67-4.30); MANUAL DIFF NO %; MEAN CORPUS HGB CONC 33.7 g/dL (32.0-36.0); MEAN CORPUSCULAR HEMOGLOB 29.4 pg (26.0-34.0); MEAN CORPUSCULAR VOLUME 87.2 fL (80-100); MEAN PLATELET VOLUME 9.6 fL (9.2-13.0); MONOCYTES 0.3 %; MONOCYTES ABSOLUTE 0.02 10/3/uL (0.21-1.20); NEUTROPHILS ABSOLUTE 4.07 10/3/uL (2.02-8.40); PLATELET COUNT 167 10/3/uL (150-400); RBC DISTRIBUTION WIDTH 15.4 % (12.0-16.0); RED CELL COUNT 3.91 10/6/uL (4.0-5.6); WHITE BLOOD CELLS 6.1 10/3/uL (4.5-10.5)
[2016-10-14 14:05] LABS: INTERNATIONAL NORMAL RATI 1.1 UNITS (-); PARTIAL THROMBO TIME 24.1 SEC (22.5-37.2); PROTIME (NOT ORD) 14.5 SEC (12.0-14.5)
[2016-10-14 14:07] LABS: A/G RATIO 1.1 (0.7-1.9); ALBUMIN 3.2 G/DL (3.5-5.0); ALKALINE PHOSPHATASE 47 U/L (45-117); BUN (BLOOD UREA NITROGEN) 24 MG/DL (6-23); CALCIUM, SERUM 8.5 MG/DL (8.5-10.4); CHLORIDE, SERUM 106 MMOL/L (96-112); CO2 (CARBON DIOXIDE) 26 MMOL/L (24-34); CREATININE 1.23 MG/DL (0.55-1.02); GFR AFRICAN AMERICAN 47 ML/MIN (>=60); GFR NON AFRICAN AMERICAN 41 ML/MIN (>=60); GLUCOSE, SERUM 188 MG/DL (60-99); SGOT(AST) 15 U/L (5-40); SGPT(ALT) 32 U/L (5-65); SODIUM, SERUM 138 MMOL/L (135-148); TOTAL BILIRUBIN 0.7 MG/DL (0-1.2); TOTAL PROTEIN 6.2 G/DL (6.0-8.5)
== END 2016-10-14 15:45 | disposition home or self-care (01) ==
LOC: ER 12:52
PROVIDERS: Emergency Medicine
DX: S36.63XA Laceration of rectum, initial encounter (principal); K64.9 Unspecified hemorrhoids; I10 Essential (primary) hypertension; K21.9 Gastro-esophageal reflux disease without esophagitis; E11.9 Type 2 diabetes mellitus without complications; Z88.2 Allergy status to sulfonamides; Z88.8 Allergy status to other drugs, medicaments and biological substances; Z79.84 Long term (current) use of oral hypoglycemic drugs; Z79.899 Other long term (current) drug therapy
CPT/HCPCS: 80053; 85025; 85610; 85730; 99283